=== PATIENT | male | born 1985 | race Caucasian/White ===

== ENCOUNTER 2018-08-05 21:07 | Observation (INO) ==
--- NOTE | 2018-08-05 21:15 | Emergency Department Note ---
Disposition Clinical Impression: Acute psychosis Disposition: Still a Patient General Adult HPI - General Stated complaint: AMS Time Seen by Provider: 08/05/18 21:09 - History of Present Illness HPI Narrative: ED ATTESTATION NOTE: I examined this patient and my medical decision-making was reviewed with the Resident Physician/CASE MONITOR/PA/Student. I have personally performed a face to face evaluation on this patient & I agree with the documented findings, disposition and treatment plan as described except to the extent set forth below. Patient was seen with emergency medicine resident Brandon Panchal please see copy of her note for details of this encounter Briefly: 33-year-old male brought in by) no family available patient lives in [place] but is here visiting. He has been off his "medications" for about 3 weeks. They are unsure what his actual mental health diagnosis is either bipolar disorder and/or schizophrenia. Patient is very agitated having active audio and visual hallucinations is able to be redirected with the with the verbal coaching. They said the patient is been getting violent at home punching holes in hilliard per the report. Patient is having pressured speech is hypervigilant. Patient will be getting 20 mg of Geodon. Patient physical examination is otherwise benign no signs of external trauma moist oral mucosa follows commands no skin rashes chest clear abdomen surgically benign patient is able to move all 4 kg 4 extremities. Patient will undergo medical clearance get 20 mg of Geodon patient is ready been pink slipped security is at bedside in the room. We will then have him evaluated by mental health services at [place]. Disposition pending. Course Vital Signs Temperature 98.0 F 08/05/18 21:12 Pulse Rate 126 08/05/18 21:12 Respiratory Rate 20 08/05/18 21:12 Blood Pressure 151/115 08/05/18 21:12 O2 Sat by Pulse Oximetry 99 08/05/18 21:12 Temperature 98.0 F 08/05/18 21:12 Pulse Rate 126 08/05/18 21:12 Respiratory Rate 20 08/05/18 21:12 Blood Pressure 151/115 08/05/18 21:12 O2 Sat by Pulse Oximetry 99 08/05/18 21:12 Oxygen Delivery Oxygen Delivery Room Air
[2018-08-05] MEDS ORDERED: Ziprasidone injection 20 MG/ML VIAL IM ONE ×2 (21:17→22:18)
[2018-08-05 21:30] LABS: Bilirubin,Urine Negative (Negative); Blood,Urine Negative (Negative); Clarity,Urine Clear (Clear); Color,Urine Yellow (Yellow); Glucose,Urine (UA) Normal (Normal); Ketones,Urine Trace mg/dL (Negative); Leukocyte Esterase,Urine Negative (Negative); Nitrite,Urine Negative (Negative); Protein,Urine Trace mg/dL (Neg-Trace); Specific Gravity,Urine 1.022 (1.010-1.025); Urobilinogen,Urine Normal (Normal)
[2018-08-05 21:32] LABS: Bacteria,Urine None Seen per hpf (None-Few); Hyaline Casts,Urine None Seen per lpf (None-Few); Squamous Epithelial Cell,Urine Moderate per lpf (None-Few); WBC,Urine 0-3 per hpf (0-3)
--- NOTE | 2018-08-05 21:50 | Emergency Department Note ---
Disposition Clinical Impression: Acute psychosis Disposition: Admitted As Inpatient Condition: Good Referrals: NONE,PCP [Primary Care Provider] - Forms: ED Satisfaction Letter Time of Disposition: 02:22 Psych HPI - General Chief Complaint: ED Psychiatric Symptoms Stated Complaint: 1A, AMS Time Seen by Provider: 08/05/18 21:09 Source: patient Mode of arrival: ambulatory Limitations: altered mental status Nursing Notes Reviewed: Yes Vital Signs Reviewed: Yes - History of Present Illness HPI Narrative: 33-year-old male presented to the emergency department for anxiety and psychiatric problems. Patient does have a psychiatric history but family and patient does not know a diagnosis they said possible bipolar or schizophrenia. He has not had any metastases of his medications recently. He is from [place] and visiting friends currently. They said that he has been talking to the hilliard and talking to people neck she saw him punching hilliard's or ST said there was something on there. Has not been violent anyone else has no homicidal or suicidal ideations. He does not have any pain anywhere. He does not have any short of breath. Patient otherwise has no complaints - Related Data Allergies Allergy/AdvReac Type Severity Reaction Status Date / Time Unable to Assess Allergy Unverified 08/05/18 21:23 All systems ED: reviewed and negative except as stated. Review of Systems: As Per HPI Constitutional: Denies: fever, chills, weakness, weight change Eyes: Denies: eye pain, eye discharge, vision change ENT ED: Denies: ear pain, throat pain, dental pain, hearing loss, epistaxis, congestion, dysphagia Cardiovascular: Denies: chest pain, palpitations, dyspnea on exertion, edema, syncope Respiratory: Denies: cough, dyspnea, wheezes, hemoptysis, stridor Gastrointestinal: Denies: abdominal pain, nausea, vomiting, diarrhea, constipation, hematemesis, melena, hematochezia Genitourinary: Denies: urgency, dysuria, frequency, hematuria Musculoskeletal: Denies: back pain, neck pain, arthralgia, myalgia Integumentary: Denies: rash, abrasion, lesions Neurological: Denies: headache, weakness, numbness, paresthesias, confusion, abnormal gait, vertigo Psychiatric: Reports: anxiety, auditory hallucinations, visual hallucinations. Denies: depression, suicidal thoughts, homicidal thoughts Endocrine: Denies: fatigue Hematological/Lymphatic: Denies: easy bleeding, easy bruising Allergic/Immunologic: Denies: facial swelling, urticaria Past Medical History - Past Medical History Attestation: Yes The following information was validated with the patient. Source: unable to obtain Medical history: Reports: other - Social History Smoking Status: Unknown if ever smoked Smokeless Tobacco Status: No Alcohol use: Reports: none Drug use: Reports: other Physical Exam - General Limitations: altered mental status General appearance: alert, in no apparent distress - Head Head exam: atraumatic, normocephalic, normal inspection - Eye Eye exam: Present: normal appearance, PERRL, EOMI - ENT ENT exam: normal exam, normal oropharynx, mucous membranes moist - Neck Neck exam: Present: normal inspection, full ROM, trachea midline - Chest Chest inspection: Present: normal inspection, symmetric chest wall rise - Respiratory Respiratory exam: Present: normal lung sounds bilaterally - Cardiovascular Cardiovascular exam: Present: regular rate, normal rhythm, normal heart sounds - Abdominal Exam Abdominal exam: Present: soft, Non-Tender, normal bowel sounds. Absent: tenderness, distention, guarding, rebound, rigidity - Extremities Exam Extremities exam: Present: normal inspection, full ROM. Absent: tenderness, pedal edema - Back Exam Back exam: Present: normal inspection, full ROM. Absent: tenderness - Neurological Exam Neurological exam: Present: alert, oriented X3 - Psychiatric Psychiatric exam: Present: anxious, manic. Absent: homicidal ideation, suicidal ideation - Skin Skin exam: Present: warm, dry, intact, normal color Course Course Narrative: We will do basic medical clearance including CBC, BMP, urinalysis, urine drug screen, salicylate, acetaminophen, chest x-ray. Once patient is medically cleared we will contact the psychiatric unit for further evaluation. Vital Signs Temperature 98.0 F 08/05/18 21:12 Pulse Rate 126 08/05/18 21:12 Respiratory Rate 20 08/05/18 21:12 Blood Pressure 151/115 08/05/18 21:12 O2 Sat by Pulse Oximetry 99 08/05/18 21:12 Temperature 98.0 F 08/05/18 21:12 Pulse Rate 90 08/05/18 23:17 Respiratory Rate 20 08/05/18 23:17 Blood Pressure 105/74 08/05/18 23:17 O2 Sat by Pulse Oximetry 99 08/05/18 21:12 Oxygen Delivery Oxygen Delivery Room Air Psych - MDM Narrative Medical decision making narrative: Patient's labs are all within normal limits. Patient did have a positive urine drug screen patient has no alcohol on board. We will contact the public health specialist for consultation and an evaluation. We will await their recommendations at this time. One a called back and they would like patient to be admitted for medical observation overnight as patient did get IM Geodon and was very sedated. One a we will reevaluate in the morning. I spoke with the hospitalist Dr. Bradley at 0222 and he agreed to set the patient to their service. Patient is admitted in stable condition - Lab Data Result diagrams: 08/05/18 21:10 08/05/18 21:10 Lab Results 08/05/18 08/05/18 08/05/18 Range/Units 21:10 21:10 21:19 WBC 9.6 (4.3-11.1) K/mcL RBC 5.52 H (4.19-5.50) M/mcL Hgb 17.2 H (12.9-16.9) g/dL Hct 47.2 (37.5-50.1) % MCV 85.5 (83.0-100.0) fL MCH 31.2 (28.0-33.3) pg MCHC 36.4 H (31.6-35.5) g/dL RDW 11.6 (11.5-14.5) % Plt Count 192 (140-400) K/mcL MPV 10.7 (9.4-12.4) fL Immature Gran % 0.3 (0-4) % Seg Neutrophils % 66.3 % Lymphocytes % 26.5 % Monocytes % 5.9 % Eosinophils % 0.4 % Basophils % 0.6 % Neutrophils # 6.3 (1.6-8.9) K/mcL Lymphocytes # 2.5 (0.6-4.6) K/mcL Monocytes # 0.6 (0.0-1.3) K/mcL Eosinophils # 0.0 (0.0-0.6) K/mcL Basophils # 0.1 (0.0-0.2) K/mcL Sodium 140 (136-145) mEq/L Potassium 3.6 (3.5-5.1) mEq/L Chloride 107 (98-107) mEq/L Carbon Dioxide 24 (23-29) mEq/L BUN 20 (6-20) mg/dL Creatinine 1.17 (0.70-1.30) mg/dL Est GFR ( Amer) > 60 (> 60) Est GFR (Non-Af Amer) > 60 (> 60) BUN/Creatinine Ratio 17 (6-26) Glucose 98 (70-105) mg/dL Calculated Osmolality 293 (280-300) Calcium 9.7 (8.6-10.3) mg/dL Urine Color Yellow (Yellow) Urine Clarity Clear (Clear) Urine pH 6.0 (5.0-8.0) pH Units Ur Specific [place] 1.022 (1.010-1.025) Urine Protein Trace (Neg-Trace) mg/dL Urine Glucose (UA) Normal (Normal) mg/dL Urine Ketones Trace H (Negative) mg/dL Urine Blood Negative (Negative) Urine Nitrite Negative (Negative) Urine Bilirubin Negative (Negative) Urine Urobilinogen Normal (Normal) mg/dL Ur Leukocyte Esterase Negative (Negative) Urine Microscopic RBC 5-15 H (0-3) per hpf Urine Microscopic WBC 0-3 (0-3) per hpf Ur Squamous Epith Cells Moderate H (None-Few) per lpf Urine Bacteria None Seen (None-Few) per hpf Hyaline Casts None Seen (None-Few) per lpf Salicylates < 2.5 L (15.0-30.0) mg/dL Urine Opiates Screen (Kwmqmg=133) ng/mL Acetaminophen < 10 L (10-20) mcg/mL Ur Barbiturates Screen (Czplob=392) ng/mL Ur Phencyclidine Scrn (Cutoff=25) ng/mL Ur Amphetamines Screen (Vgudjc=8628) ng/mL U Benzodiazepines Scrn (Tvbkjs=679) ng/mL Urine Cocaine Screen (Cutoff= 300) ng/mL U Marijuana (THC) Screen (Cutoff = 50) ng/mL Ur Drug Screen Interp Ethyl Alcohol < 10 (Less than 10) mg/dL 08/05/18 Range/Units 21:19 WBC (4.3-11.1) K/mcL RBC (4.19-5.50) M/mcL Hgb (12.9-16.9) g/dL Hct (37.5-50.1) % MCV (83.0-100.0) fL MCH (28.0-33.3) pg MCHC (31.6-35.5) g/dL RDW (11.5-14.5) % Plt Count (140-400) K/mcL MPV (9.4-12.4) fL Immature Gran % (0-4) % Seg Neutrophils % % Lymphocytes % % Monocytes % % Eosinophils % % Basophils % % Neutrophils # (1.6-8.9) K/mcL Lymphocytes # (0.6-4.6) K/mcL Monocytes # (0.0-1.3) K/mcL Eosinophils # (0.0-0.6) K/mcL Basophils # (0.0-0.2) K/mcL Sodium (136-145) mEq/L Potassium (3.5-5.1) mEq/L Chloride (98-107) mEq/L Carbon Dioxide (23-29) mEq/L BUN (6-20) mg/dL Creatinine (0.70-1.30) mg/dL Est GFR ( Amer) (> 60) Est GFR (Non-Af Amer) (> 60) BUN/Creatinine Ratio (6-26) Glucose (70-105) mg/dL Calculated Osmolality (280-300) Calcium (8.6-10.3) mg/dL Urine Color (Yellow) Urine Clarity (Clear) Urine pH (5.0-8.0) pH Units Ur Specific [place] (1.010-1.025) Urine Protein (Neg-Trace) mg/dL Urine Glucose (UA) (Normal) mg/dL Urine Ketones (Negative) mg/dL Urine Blood (Negative) Urine Nitrite (Negative) Urine Bilirubin (Negative) Urine Urobilinogen (Normal) mg/dL Ur Leukocyte Esterase (Negative) Urine Microscopic RBC (0-3) per hpf Urine Microscopic WBC (0-3) per hpf Ur Squamous Epith Cells (None-Few) per lpf Urine Bacteria (None-Few) per hpf Hyaline Casts (None-Few) per lpf Salicylates (15.0-30.0) mg/dL Urine Opiates Screen Negative (Wrvppp=201) ng/mL Acetaminophen (10-20) mcg/mL Ur Barbiturates Screen Negative (Spqvlh=879) ng/mL Ur Phencyclidine Scrn Negative (Cutoff=25) ng/mL Ur Amphetamines Screen Positive H (Vjcmje=6392) ng/mL U Benzodiazepines Scrn Negative (Bnebwq=748) ng/mL Urine Cocaine Screen Negative (Cutoff= 300) ng/mL U Marijuana (THC) Screen Positive H (Cutoff = 50) ng/mL Ur Drug Screen Interp See Below Ethyl Alcohol (Less than 10) mg/dL Psychiatric Medical Clearance - Medical Clearance Checklist Medical History: No Social History Section defined Current Vitals: Last Vital Signs Temp 98.0 F 08/05/18 21:12 Pulse 90 08/05/18 23:17 Resp 20 08/05/18 23:17 BP 105/74 08/05/18 23:17 Pulse Ox 99 08/05/18 21:12 Psychiatric Lab Panel: Drug Levels and Toxicity 08/05/18 08/05/18 21:10 21:19 Urine Opiates Screen Negative Acetaminophen < 10 L Ur Barbiturates Screen Negative Ur Phencyclidine Scrn Negative Ur Amphetamines Screen Positive H U Benzodiazepines Scrn Negative Urine Cocaine Screen Negative U Marijuana (THC) Screen Positive H Ethyl Alcohol < 10 Abnormal Labs: Abnormal lab results RBC 5.52 M/mcL (4.19-5.50) H 08/05/18 21:10 Hgb 17.2 g/dL (12.9-16.9) H 08/05/18 21:10 MCHC 36.4 g/dL (31.6-35.5) H 08/05/18 21:10 Urine Ketones Trace mg/dL (Negative) H 08/05/18 21:19 Urine Microscopic RBC 5-15 per hpf (0-3) H 08/05/18 21:19 Ur Squamous Epith Cells Moderate per lpf (None-Few) H 08/05/18 21:19 Salicylates < 2.5 mg/dL (15.0-30.0) L 08/05/18 21:10 Acetaminophen < 10 mcg/mL (10-20) L 08/05/18 21:10 Ur Amphetamines Screen Positive ng/mL (Jgwyoe=2057) H 08/05/18 21:19 U Marijuana (THC) Screen Positive ng/mL (Cutoff = 50) H 08/05/18 21:19 Statement of Medical Clearance: I have evaluated the patient, reviewed diagnostic information, and certify that the patient's medical condition is sufficiently stable that transfer to the psychiatric unit does not pose a significant risk of deterioration.
[2018-08-05 21:57] LABS: Amphetamine Screen,Urine Positive ng/mL (Cutoff=1000); Barbiturate Screen,Urine Negative ng/mL (Cutoff=200); Benzodiazepines Screen,Urine Negative ng/mL (Cutoff=200); Cannabinoid Screen,Urine Positive ng/mL (Cutoff = 50); Cocaine Screen,Urine Negative ng/mL (Cutoff= 300); Opiate Screen,Urine Negative ng/mL (Cutoff=300); Phencyclidine Screen,Urine Negative ng/mL (Cutoff=25)
[2018-08-05 22:11] LABS: Basophils # 0.1 K/mcL (0.0-0.2); Basophils % 0.6 %; Eosinophils % 0.4 %; Hematocrit 47.2 % (37.5-50.1); Hemoglobin 17.2 g/dL (12.9-16.9); Immature Granulocytes % 0.3 % (0-4); Lymphocytes # 2.5 K/mcL (0.6-4.6); Lymphocytes % 26.5 %; Mean Corpuscular HGB Conc 36.4 g/dL (31.6-35.5); Mean Corpuscular Hemoglobin 31.2 pg (28.0-33.3); Mean Corpuscular Volume 85.5 fL (83.0-100.0); Mean Platelet Volume 10.7 fL (9.4-12.4); Monocytes # 0.6 K/mcL (0.0-1.3); Monocytes % 5.9 %; Neutrophils # 6.3 K/mcL (1.6-8.9); Platelet Count 192 K/mcL (140-400); Red Blood Count 5.52 M/mcL (4.19-5.50); Red Cell Distribution Width 11.6 % (11.5-14.5); Segmented Neutrophils % 66.3 %
[2018-08-05 22:32] LABS: Acetaminophen < 10 mcg/mL (10-20); BUN/Creatinine Ratio 17 (6-26); Blood Urea Nitrogen 20 mg/dL (6-20); Calcium 9.7 mg/dL (8.6-10.3); Carbon Dioxide 24 mEq/L (23-29); Chloride 107 mEq/L (98-107); Ethanol < 10 mg/dL (Less than 10); Glucose 98 mg/dL (70-105); Osmolality,Calculated 293 (280-300); Potassium 3.6 mEq/L (3.5-5.1); Salicylate < 2.5 mg/dL (15.0-30.0); Sodium 140 mEq/L (136-145); eGFR For Non-African Americans > 60 (> 60)
[2018-08-05] MEDS: Ziprasidone 20 MG CAPSULE PO SCH (22:49)
[2018-08-06] MEDS ORDERED: Acetaminophen 325 MG TABLET PO PRN (07:33)
[2018-08-06] MEDS ORDERED: Naloxone 0.4 MG/ML INJ IVP PRN (07:33)
[2018-08-06] MEDS ORDERED: *HR* LORazepam 2 MG/ML VIAL IVP PRN (07:36)
[2018-08-06 08:20] VITALS: BP 144/87
--- NOTE | 2018-08-06 09:09 | Consult Note ---
Date of Encounter: 08/06/18 Time of Encounter: 09:06 Assessment & Recommendation (1) Acute psychosis Current visit: Yes Status: Acute Assessment & Recommendation: Suspect current presentation related to daily meth use but client unsafe to discharge in current state. Denies SI/HI but floridly psychotic. Recommend inpatient psych admission once medically clear. Can use Haldol prn for agitation until transferred. History of Present Illness Requesting Physician: Kostas Bradley MD Reason for consult: psychosis History of present illness: Mr. Gresham is a 33 year old male who was brought in by family for bizarre behaviors at home. No family at bedside but according to notes client was punching hilliard and talking to self. In ER he received prns and psych was unable to get a clear history from him due to sedation. On eval today he is floridly psychotic. Talking to multiple people who are not there. According to sitter he has been talking to himself and punching the air all morning. Unreliable historian but client did say he has a mental health history of "Bipolar, Schizophrenic." Not currently in treatment. Admits to using meth daily. Suspect current presentation is more related to substance abuse than a primary thought disorder. Client denies SI/HI but is unsafe to discharge given current presentation. CC: Kostas Bradley MD Past Med Surg Social Fam HX - Past Medical History Medical history: other - Past Psychiatric History Psychiatric history: Reports: bipolar, schizophrenia Family psychiatric history: Unknown Family History of Suicide: Unknown - Social History Smoking Status: Unknown if ever smoked Smokeless Tobacco Status: No Alcohol use: none Drug use: other Medications & Allergies 3 Allergy/AdvReac Type Severity Reaction Status Date / Time Unable to Assess Allergy Unverified 08/05/18 21:23 Review of Systems Constitutional: Denies: fever, chills, weakness, weight change Eyes: Denies: eye pain, vision change Ears, Nose, Throat: Denies: ear pain, throat pain, dental pain, hearing loss, congestion Cardiovascular: Denies: chest pain, palpitations, dyspnea on exertion Respiratory: Denies: cough, dyspnea, wheezes Gastrointestinal: Denies: abdominal pain, nausea, vomiting, diarrhea, constipation Genitourinary male: Denies: urgency, dysuria, frequency, genital lesions Musculoskeletal: Denies: joint swelling, joint pain Integumentary: Denies: rash, lesions, pruritus Neurological: Denies: headache, weakness, numbness, memory loss Endocrine: Denies: fatigue, heat or cold intolerance Hematologic/Lymphatic: Denies: easy bruising, lymphadenopathy Allergic/Immunologic: Denies: urticaria, itchy eyes Psychiatry Exam - Constitutional Vitals: Temp Pulse Resp BP Pulse Ox 97.8 F 76 16 144/87 98 08/06/18 08:19 08/06/18 08:19 08/06/18 08:19 08/06/18 08:19 08/06/18 08:19 General appearance: age & developmentally appropriate - Musculoskeletal Gait: other Station: bizarre mannerisms Strength & Tone: normal for patient - Psychiatric Patient Orientation: Yes Person, Yes Place Level of alertness: Alert Behavior: agitated Psychomotor activity: Increased Eye Contact: Maintains Eye Contact Mood Description: Irritable Affect description: congruent with mood Speech Volume: Normal Speech pattern: normal rate, normal rhythm, normal tone, fluent, spontaneous Language & Vocabulary: consistent with education Thought Process: Loose Associations Thought Content: No Suicidal ideation, No Homicidal ideation Perceptual Disturbances: Yes Reacting to internal stimuli, Yes Auditory hallucinations, Yes Visual hallucinations Attention Span Ability: Unable to Focus, Unable to Sustain Attention Memory Description: Immediate Intact, Recent Impaired, Remote Intact Patient Reliability: Not Reliable Historian Fund of knowledge: Yes abstraction ability, Yes aware of current events Intelligence Estimate: Average Judgment: Limited Insight: Minimal Results - Labs Labs: Laboratory Last Values WBC 9.6 K/mcL (4.3-11.1) 08/05/18 21:10 RBC 5.52 M/mcL (4.19-5.50) H 08/05/18 21:10 Hgb 17.2 g/dL (12.9-16.9) H 08/05/18 21:10 Hct 47.2 % (37.5-50.1) 08/05/18 21:10 MCV 85.5 fL (83.0-100.0) 08/05/18 21:10 MCH 31.2 pg (28.0-33.3) 08/05/18 21:10 MCHC 36.4 g/dL (31.6-35.5) H 08/05/18 21:10 RDW 11.6 % (11.5-14.5) 08/05/18 21:10 Plt Count 192 K/mcL (140-400) 08/05/18 21:10 MPV 10.7 fL (9.4-12.4) 08/05/18 21:10 Immature Gran % 0.3 % (0-4) 08/05/18 21:10 Seg Neutrophils % 66.3 % 08/05/18 21:10 Lymphocytes % 26.5 % 08/05/18 21:10 Monocytes % 5.9 % 08/05/18 21:10 Eosinophils % 0.4 % 08/05/18 21:10 Basophils % 0.6 % 08/05/18 21:10 Neutrophils # 6.3 K/mcL (1.6-8.9) 08/05/18 21:10 Lymphocytes # 2.5 K/mcL (0.6-4.6) 08/05/18 21:10 Monocytes # 0.6 K/mcL (0.0-1.3) 08/05/18 21:10 Eosinophils # 0.0 K/mcL (0.0-0.6) 08/05/18 21:10 Basophils # 0.1 K/mcL (0.0-0.2) 08/05/18 21:10 Sodium 140 mEq/L (136-145) 08/05/18 21:10 Potassium 3.6 mEq/L (3.5-5.1) 08/05/18 21:10 Chloride 107 mEq/L (98-107) 08/05/18 21:10 Carbon Dioxide 24 mEq/L (23-29) 08/05/18 21:10 BUN 20 mg/dL (6-20) 08/05/18 21:10 Creatinine 1.17 mg/dL (0.70-1.30) 08/05/18 21:10 Est GFR ( Amer) > 60 (> 60) 08/05/18 21:10 Est GFR (Non-Af Amer) > 60 (> 60) 08/05/18 21:10 BUN/Creatinine Ratio 17 (6-26) 08/05/18 21:10 Glucose 98 mg/dL (70-105) 08/05/18 21:10 Calculated Osmolality 293 (280-300) 08/05/18 21:10 Calcium 9.7 mg/dL (8.6-10.3) 08/05/18 21:10 Urine Color Yellow (Yellow) 08/05/18 21: Urine Clarity Clear (Clear) 08/05/18 21: Urine pH 6.0 pH Units (5.0-8.0) 08/05/18 21: Ur Specific [place] 1.022 (1.010-1.025) 08/05/18 21:19 Urine Protein Trace mg/dL (Neg-Trace) 08/05/18 21:19 Urine Glucose (UA) Normal mg/dL (Normal) 08/05/18 21: Urine Ketones Trace mg/dL (Negative) H 08/05/18 21:19 Urine Blood Negative (Negative) 08/05/18 21: Urine Nitrite Negative (Negative) 08/05/18: Urine Bilirubin Negative (Negative) 08/05/18: Urine Urobilinogen Normal mg/dL (Normal) 08/05/18 21: Ur Leukocyte Esterase Negative (Negative) 08/05/18 21: Urine Microscopic RBC 5-15 per hpf (0-3) H 08/05/18 21: Urine Microscopic WBC 0-3 per hpf (0-3) 08/05/18 21:19 Ur Squamous Epith Cells Moderate per lpf (None-Few) H 08/05/18 21:19 Urine Bacteria None Seen per hpf (None-Few) 08/05/18 21: Hyaline Casts None Seen per lpf (None-Few) 08/05/18 21:19 Salicylates < 2.5 mg/dL (15.0-30.0) L 08/05/18 21:10 Urine Opiates Screen Negative ng/mL (Myjnsi=681) 08/05/18 21: Acetaminophen < 10 mcg/mL (10-20) L 08/05/18 21:10 Ur Barbiturates Screen Negative ng/mL (Oelnfr=305) 08/05/18 21:19 Ur Phencyclidine Scrn Negative ng/mL (Cutoff=25) 08/05/18 21: Ur Amphetamines Screen Positive ng/mL (Uhxcao=7784) H 08/05/18 21: U Benzodiazepines Scrn Negative ng/mL (Xnobqv=842) 08/05/18 21:19 Urine Cocaine Screen Negative ng/mL (Cutoff= 300) 08/05/18 21: U Marijuana (THC) Screen Positive ng/mL (Cutoff = 50) H 08/05/18 21:19 Ur Drug Screen Interp See Below 08/05/18 21:19 Ethyl Alcohol < 10 mg/dL (Less than 10) 08/05/18 21:10 Consult Discharge Plan - Plan Referrals: NONE,PCP [Primary Care Provider] -
[2018-08-06] MEDS: *HR* Heparin 5,000 UNIT/ML VIAL SQ SCH ×2 (09:13→13:41)
[2018-08-06] MEDS: Ziprasidone 20 MG CAPSULE PO SCH (09:14)
--- NOTE | 2018-08-06 09:17 | Internal Med History&Physical ---
Date of Encounter: 08/06/18 Time of Encounter: 09:11 Internal Medicine - H&P: HPI Chief complaint: These are, erratic behavior at home. Admitted From: Home Plans for Post Hospital Care: Home History of present illness: Mr. Gresham is a 33 year old male as per ER note patient has a history of psychiatry condition, Patient did not give me much information during my evaluation. H&P taken from ER chart. Patient brought to the ED due to erratic behavior at home, as per chart patient was taking to the wall and having visual hallucinations. During my evaluation patient continues to have visual hallucination as he seems to be taking and arguing with someone. He denied homicidal or suicidal ideation. Past Med Surg Social Fam HX - Past Medical History Medical history: other - Social History Smoking Status: Unknown if ever smoked Smokeless Tobacco Status: No Alcohol use: none Drug use: other Internal Medicine - H&P: Meds 3 Allergy/AdvReac Type Severity Reaction Status Date / Time Unable to Assess Allergy Unverified 08/05/18 21:23 All Systems PM: A 10-system review of systems was performed and is negative for pertinent findings except as documented above in the HPI. - Constitutional Constitutional: no chills, no weakness - EENT Eyes: no blurry vision, no pain - Cardiovascular Cardiovascular ROS IM: no chest pain, no edema, no palpitations, no paroxysmal nocturnal dyspnea, no syncope - Respiratory Respiratory: no cough, no dyspnea, no wheezing, no snoring - Gastrointestinal Gastrointestinal: no abdominal pain, no change in bowel habits, no nausea, no vomiting - Genitourinary Genitourinary ROS male: no hematuria - Musculoskeletal Musculoskeletal ROS IM: no limited range of motion, no neck pain - Integumentary Integumentary IM: no rash - Neurological Neurological ROS: other visual disturbances, no abnormal speech, no lack of coordination, no restless legs - Psychiatric Psychiatric: anxiety, auditory hallucinations, visual hallucinations, no homicidal ideation, no suicidal ideation - Endocrine Endocrine IM: no cold intolerance, no fatigue - Constitutional Vitals: Temp Pulse Resp BP Pulse Ox 97.8 F 76 16 144/87 98 08/06/18 08:19 08/06/18 08:19 08/06/18 08:19 08/06/18 08:19 08/06/18 08:19 Exam: General: Alert and oriented 3. In no acute distress. Skin:Normal color, no rash, no lesions. Cardiovascular: RRR, Normal S1 & S2, no rubs, murmurs or gallops. Jvd about 5cm. Lungs: Clear breath sounds to auscultation bilaterally, no wheezes or crackles. Abdomen: Soft, non-tender, no rigidity. Extremities: No deformity, no edema or tenderness, no joint swelling or clubbing. Neurological: Erratic behavior, having visual hallucinations. Normal motor skills. Rest of the physical exam is non contributory Internal Med - H&P Results - Labs CBC & Chem 7: 08/05/18 21:10 08/05/18 21:10 - Assessment and plan (1) Acute psychosis Current Visit: Yes Status: Acute Assessment and plan: Patient having visual and auditory hallucinations Plan Psychiatry has been consulted will follow recommendations lorazepam 1mg/IV Q4HR PRN for agitation started on his home medication Ziprasidene 20mg PO BID. - Time Spent With Patient Total time spent is greater than 50% in coordination of care (as documented) at patient's floor/unit and/or counseling patient: 25 - 35 minutes
--- NOTE | 2018-08-06 09:26 | Discharge Summary ---
Date of Encounter: 08/06/18 Time of Encounter: 09:24 - Discharge Diagnosis (1) Acute psychosis Priority: Primary Status: Acute Hospital course: Mr. Gresham is a 33 year old male patient brought to the hospital from home due to erratic behavior, visual or auditory hallucination. Evaluated by psych and recommended inpatient psych admission. Patient is medically cleared to be transferred. - Time Spent with Patient Total time spent providing and/or coordinating discharge services: Less than 30 minutes - Discharge Medications Allergies/Adverse Reactions: 3 Allergy/AdvReac Type Severity Reaction Status Date / Time Unable to Assess Allergy Unverified 08/05/18 21:23 Date of admission: 08/06/18 02:33 Primary care physician: PCP NONE Consults: 08/06/18 07:39 Consult to Psychiatry [CONS] Routine Consulting Provider: Psychiatry Diana Reason consult: Psychosis Call Completed: No - Constitutional Vitals: Temp Pulse Resp BP Pulse Ox 97.8 F 76 16 144/87 98 08/06/18 08:19 08/06/18 08:19 08/06/18 08:19 08/06/18 08:19 08/06/18 08:19 Exam: General: Alert and oriented 3. In no acute distress. Skin:Normal color, no rash, no lesions. Cardiovascular: RRR, Normal S1 & S2, no rubs, murmurs or gallops. Jvd about 5cm. Lungs: Clear breath sounds to auscultation bilaterally, no wheezes or crackles. Abdomen: Soft, non-tender, no rigidity. Extremities: No deformity, no edema or tenderness, no joint swelling or clubbing. Neurological: Erratic behavior, having visual hallucinations. Normal motor skills. Rest of the physical exam is non contributory - Patient Status Disposition: Transfer Psychiatric Hosp Condition: Good Functional capacity at discharge: independent ambulation Overall status at discharge: patient is not back to baseline - Discharge Instructions Follow Up With: NONE,PCP [Primary Care Provider] - - Diet and Activity Activity: resume usual activities as tolerated Diet: advance to your usual diet
== END 2018-08-06 19:40 ==
LOC: EMEROOARM 21:07 → 3BNU 21:07
PROVIDERS: ADMIT Internal Medicine; ATTEND Pediatrics

== ENCOUNTER 2018-08-06 12:04 | Inpatient (IN) ==
[2018-08-06] MEDS ORDERED: *HR* LORazepam 2 MG/ML VIAL IM PRN (19:24)
[2018-08-06] MEDS ORDERED: MOM Conc 10 ML UD.LIQ PO PRN (19:24)
[2018-08-06] MEDS ORDERED: Haloperidol Lactate 5 MG/ML VIAL IM PRN (19:24)
[2018-08-06] MEDS ORDERED: Mag Hydrox/Al Hydrox/Simeth 30 ML UDC PO PRN (19:24)
[2018-08-06] MEDS: *HR* LORazepam 1 MG TABLET PO PRN (21:08)
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
[2018-08-07] MEDS ORDERED: *HR* LORazepam 1 MG TABLET PO ONE (12:42)
[2018-08-07] MEDS: *HR* LORazepam 1 MG TABLET PO SCH ×2 (19:23→20:42)
[2018-08-07] MEDS: risperiDONE 1 MG TABLET PO SCH (20:42)
[2018-08-07] MEDS: OXcarbazepine 150 MG TABLET PO SCH (20:42)
[2018-08-08] MEDS: Acetaminophen 325 MG TABLET PO PRN ×2 (09:30→20:38)
[2018-08-08] MEDS: OXcarbazepine 150 MG TABLET PO SCH ×2 (09:30→20:38)
[2018-08-08] MEDS: *HR* LORazepam 1 MG TABLET PO SCH ×3 (09:30→20:37)
[2018-08-08] MEDS: risperiDONE 1 MG TABLET PO SCH ×2 (09:30→20:39)
--- NOTE | 2018-08-08 12:51 | Psychiatry Progress Note ---
Date of Encounter: 08/08/18 Time of Encounter: 12:08 Subjective Interval history: pATIENT SEEN TODAY , CASE D/W TREATMENT TEAM , REMAINS DELUSIONAL and disruptive at time. states i am angry and upset about the situation here. i felt like other juanpablo is going to kill me, i have 3 faces , he thinks i am pervert. admits to a/v hallucinations and is paranoid and anxious. i stumped on my foot , foot examined , no swelling and no tenderness. i want to wait for [employer] [facility] to give me a car , i know i deserve it , i want to go shopping ang get stuff for my family. i want to go to in [place] to give me whatever drugs i want. denies side effects. Review of Systems Psychiatric: Reports: depression, anxiety, auditory hallucinations, visual hallucinations, difficulty concentrating, irritability, mood swings Results - Vital Signs Vital Signs: Temp Pulse Resp BP 98.5 F 64 16 140/97 08/08/18 09:00 08/08/18 09:00 08/08/18 09:00 08/08/18 09:00 Assessment and Plan (1) Acute psychosis Current visit: No Status: Acute Risks, benefits, side effects, alternatives discussed w/pt: Yes Patient agreeable to treatment: Yes (2) Methamphetamine-induced psychotic disorder Current visit: Yes Status: Acute Risks, benefits, side effects, alternatives discussed w/pt: Yes Patient agreeable to treatment: Yes (3) Schizophrenia Current visit: Yes Status: Acute Risks, benefits, side effects, alternatives discussed w/pt: Yes Patient agreeable to treatment: Yes Qualifiers: Schizophrenia type: paranoid schizophrenia Qualified Code(s): F20.0 - Paranoid schizophrenia Psychiatry Exam - Constitutional Vitals: Temp Pulse Resp BP 98.5 F 64 16 140/97 08/08/18 09:00 08/08/18 09:00 08/08/18 09:00 08/08/18 09:00 General appearance: average, thin - Musculoskeletal Gait: normal Station: other Strength & Tone: normal for patient - Psychiatric Patient Orientation: Yes Person, Yes Time, Yes Place Level of alertness: Alert Behavior: nervous, anxious, distractible Psychomotor activity: Increased Eye Contact: Minimal Contact Mood Description: Anxious, Irritable Affect description: constricted Speech Volume: Normal Speech pattern: disorganized Language & Vocabulary: consistent with education Thought Process: Tangential, Disorganized, Racing Thought Content: Yes Preoccupation, Yes Paranoid delusion Perceptual Disturbances: Yes Auditory hallucinations, Yes Visual hallucinations Attention Span Ability: Unable to Sustain Attention Memory Description: Grossly Intact Patient Reliability: Questionable Historian Fund of knowledge: Yes average Intelligence Estimate: Average Judgment: Poor Insight: Minimal
[2018-08-08] MEDS: hydrOXYzine pamoate 25 MG CAPSULE PO PRN (20:38)
[2018-08-08] MEDS: Nicotine 2 MG GUM BC PRN (21:11)
[2018-08-09] MEDS: OXcarbazepine 150 MG TABLET PO SCH ×2 (08:37→20:32)
[2018-08-09] MEDS: risperiDONE 1 MG TABLET PO SCH (08:38)
[2018-08-09] MEDS: *HR* LORazepam 1 MG TABLET PO SCH ×2 (08:38→20:32)
[2018-08-09] MEDS: Acetaminophen 325 MG TABLET PO PRN (10:25)
--- NOTE | 2018-08-09 13:20 | Psychiatry Progress Note ---
Date of Encounter: 08/09/18 Time of Encounter: 12:45 Subjective Interval history: Patient seen today , case d/w treatment team , he remains delusional but has periods of clear thoughts. today stating will go agter eliu[place] and do something , when i asked are you going to hurt someone , he said look at me , i do not want the law. he is stating pain in foot is good, he was c/o more this morning and not putting his foot right one completely on floor, therefore xray has been requested. At present continue monitoring as remains delusional and psychotic and has been threathening to hurt te desi shine is outside. Review of Systems Psychiatric: Reports: depression, anxiety, auditory hallucinations, visual hallucinations, difficulty concentrating, irritability, mood swings Results - Vital Signs Vital Signs: Temp Pulse Resp BP 98.3 F 80 16 137/95 08/09/18 09:00 08/09/18 09:00 08/09/18 09:00 08/09/18 09:00 - Impressions ITS Impressions Ankle X-Ray 08/09/18 11:45 IMPRESSION: No acute abnormalities. D/ / Jose M Madrigal MD / Jose M Madrigal MD Interpreting Provider: Jose M Madrigal MD Assessment and Plan (1) Acute psychosis Current visit: No Status: Acute Risks, benefits, side effects, alternatives discussed w/pt: Yes Patient agreeable to treatment: Yes (2) Methamphetamine-induced psychotic disorder Current visit: Yes Status: Acute Risks, benefits, side effects, alternatives discussed w/pt: Yes Patient agreeable to treatment: Yes (3) Schizophrenia Current visit: Yes Status: Acute Risks, benefits, side effects, alternatives discussed w/pt: Yes Patient agreeable to treatment: Yes Qualifiers: Schizophrenia type: paranoid schizophrenia Qualified Code(s): F20.0 - Paranoid schizophrenia Consult Discharge Plan - Plan Referrals: NONE,PCP [Primary Care Provider] - Psychiatry Exam - Constitutional Vitals: Temp Pulse Resp BP 98.3 F 80 16 137/95 08/09/18 09:00 08/09/18 09:00 08/09/18 09:00 08/09/18 09:00 General appearance: average - Musculoskeletal Gait: other Station: other Strength & Tone: normal for patient - Psychiatric Patient Orientation: Yes Person, Yes Time, Yes Place Level of alertness: Alert Behavior: anxious, distractible Psychomotor activity: Increased Eye Contact: Maintains Eye Contact Mood Description: Anxious Affect description: constricted Speech Volume: Normal Speech pattern: excessive Language & Vocabulary: consistent with education Thought Process: Circumstantial, Tangential Thought Content: Yes Paranoid delusion Attention Span Ability: Unable to Sustain Attention Memory Description: Grossly Intact Patient Reliability: Reliable Historian Fund of knowledge: Yes average Intelligence Estimate: Average Judgment: Limited Insight: Minimal
[2018-08-10] MEDS: *HR* LORazepam 1 MG TABLET PO SCH ×2 (08:16→20:56)
[2018-08-10] MEDS: OXcarbazepine 150 MG TABLET PO SCH ×2 (08:17→20:56)
[2018-08-10] MEDS ORDERED: RisperiDAL 3 MG TABLET PO SCH (09:00)
--- NOTE | 2018-08-10 11:28 | Psychiatry Progress Note ---
Date of Encounter: 08/10/18 Time of Encounter: 11:02 Subjective Interval history: Patient seen today , case d/w staff. he remains agitated , loud at times and threathening. he stated you guys are trying to kill me, i need to go out today. he has poor insight and judgement. states risperdal sometimes it gives me lock jaw and has refused taking it. will dc and start olanzapine , bc h/o hepatitis as per him will start gabapentin , he agreed to the plan. slept better last night , he is angry , upset and c/o pain in his heel. xray is fine. he started crying in session states i want to leave, i am not perfect , my anger protects me. remains psychotic and delusional and having visual hallucination. will start olanzapine and gabapentin. Review of Systems Psychiatric: Reports: depression, anxiety, auditory hallucinations, visual hallucinations, difficulty concentrating, irritability, mood swings Results - Vital Signs Vital Signs: Temp Pulse Resp BP 98.0 F 77 18 164/107 08/10/18 08:50 08/10/18 08:50 08/10/18 08:50 08/10/18 08:50 - Impressions ITS Impressions Ankle X-Ray 08/09/18 11:45 IMPRESSION: No acute abnormalities. D/ / Jose M Madrigal MD / Jose M Madrigal MD Interpreting Provider: Jose M Madrigal MD Assessment and Plan (1) Schizophrenia Current visit: Yes Status: Acute Risks, benefits, side effects, alternatives discussed w/pt: Yes Patient agreeable to treatment: Yes Qualifiers: Schizophrenia type: paranoid schizophrenia Qualified Code(s): F20.0 - Paranoid schizophrenia (2) Acute psychosis Current visit: No Status: Acute Risks, benefits, side effects, alternatives discussed w/pt: Yes Patient agreeable to treatment: Yes (3) Methamphetamine-induced psychotic disorder Current visit: Yes Status: Acute Risks, benefits, side effects, alternatives discussed w/pt: Yes Patient agreeable to treatment: Yes Consult Discharge Plan - Plan Referrals: NONE,PCP [Primary Care Provider] - Psychiatry Exam - Constitutional Vitals: Temp Pulse Resp BP 98.0 F 77 18 164/107 08/10/18 08:50 08/10/18 08:50 08/10/18 08:50 08/10/18 08:50 General appearance: average - Musculoskeletal Gait: slow Station: other Strength & Tone: normal for patient - Psychiatric Patient Orientation: Yes Person, Yes Time, Yes Place Level of alertness: Alert Behavior: cooperative, tearful, distractible Psychomotor activity: Slowed Eye Contact: Maintains Eye Contact Mood Description: Depressed, Anxious Affect description: congruent with mood Speech Volume: Soft/Quiet Speech pattern: slowed Language & Vocabulary: consistent with education Thought Content: Yes Preoccupation, Yes Paranoid delusion, Yes Grandiose delusion Perceptual Disturbances: Yes Visual hallucinations Attention Span Ability: Unable to Sustain Attention Memory Description: Grossly Intact Patient Reliability: Reliable Historian Fund of knowledge: Yes average Intelligence Estimate: Average Judgment: Limited Insight: Minimal
[2018-08-10] MEDS: Gabapentin 100 MG CAPSULE PO SCH ×2 (14:29→20:56)
[2018-08-10] MEDS: Acetaminophen 325 MG TABLET PO PRN (17:01)
[2018-08-10] MEDS: OLANZapine 10 MG TAB.RAPDIS PO SCH (20:56)
[2018-08-11] MEDS: Acetaminophen 325 MG TABLET PO PRN (07:35)
[2018-08-11] MEDS: Gabapentin 100 MG CAPSULE PO SCH (08:24)
[2018-08-11] MEDS: *HR* LORazepam 1 MG TABLET PO SCH ×2 (08:24→20:22)
[2018-08-11] MEDS: OXcarbazepine 150 MG TABLET PO SCH (08:24)
--- NOTE | 2018-08-11 11:15 | Psychiatry Progress Note ---
Date of Encounter: 08/11/18 Time of Encounter: 10:50 Subjective Interval history: Patient seen today , case d/w treatment team. remains agitated but is verbally directed mostly remains paranoid and focused on discharge, wants to leave but has no plans. his foot is better and preoccupied with pervert and hurting him, does not know who and where. he is stating you want to see my worse , i can be if you will not discharge. states how about if i do not take medication for ever , he has no insight. wants his Rolladnax bar. he is loud in session at times and is agitated. i am done playing this game , i want out with no medication.there is no more one more day for me, i am in control of my body I F control my body i am bipolar schizophrenia , i do not need any medication. i can not have hot girls because you all think i am evil , remains agitated , paranoia , and having auditory hallucination ,labile loud, then crying and slow. Review of Systems Psychiatric: Reports: depression, anxiety, auditory hallucinations, difficulty concentrating, irritability, mood swings Results - Vital Signs Vital Signs: Temp Pulse Resp BP 98.1 F 84 18 159/104 08/11/18 09:00 08/11/18 09:00 08/11/18 09:00 08/11/18 09:00 - Impressions ITS Impressions Ankle X-Ray 08/09/18 11:45 IMPRESSION: No acute abnormalities. D/ / Jose M Madrigal MD / Jose M Madrigal MD Interpreting Provider: Jose M Madrigal MD Assessment and Plan (1) Schizophrenia Current visit: Yes Status: Acute Risks, benefits, side effects, alternatives discussed w/pt: Yes Patient agreeable to treatment: Yes Qualifiers: Schizophrenia type: paranoid schizophrenia Qualified Code(s): F20.0 - Paranoid schizophrenia (2) Acute psychosis Current visit: No Status: Acute Risks, benefits, side effects, alternatives discussed w/pt: Yes Patient agreeable to treatment: Yes (3) Methamphetamine-induced psychotic disorder Current visit: Yes Status: Acute Risks, benefits, side effects, alternatives discussed w/pt: Yes Patient agreeable to treatment: Yes Consult Discharge Plan - Plan Referrals: [facility] [Outside] - 08/24/18 10:00 am (The above appointment is with Rebecca Roberto for outpatient psychiatric assessment and medication management services. Please arrive 15 minutes early to complete paperwork. Please bring your insurance card, photo ID and medications in their original bottles. If you do not have insurance, bring proof of income to apply for the sliding fee scale. If you are unable to keep this appointment, 24 hour business notice of cancellation is expected. The above appointment(s) reflects first availability. You may contact the office regularly to check for cancellations that may allow you to be seen sooner.) [facility] [Outside] (The above appointment is with . Please complete and bring the [facility] intake packet you were provided at the hospital to this appointment. When you come to your first appointment, you will be meeting with business office staff, meeting with a counselor, and developing a treatment plan. You will receive follow- up appointments for on-going services , which could include community support, mental health and substance abuse counseling, groups/partial hospitalization programming and medication assisted treatment. You will also need to bring the following to your first appointment as well: 1) proof of household income (two consecutive pay stubs, social security award letter, bank statement, statement letter from [facility], child support statement, IRS 1040 or W2 form, or a statement from the person who financially supports you stating they help provide for your basic needs), 2) proof of residency (drivers license, a piece of mail showing your address, a statement from person you live with verifying you live at their address), 3) photo ID, 4) your insurance card (if you have commercial insurance you must call to obtain a prior authorization number before you arrive to your first appointment) and 5) if you do not have insurance but have applied for Medicaid, please bring verification you have applied. The above appointment(s) reflects first availability. You may contact the office regularly to check for cancellations that may allow you to be seen sooner.) Psychiatry Exam - Constitutional Vitals: Temp Pulse Resp BP 98.1 F 84 18 159/104 08/11/18 09:00 08/11/18 09:00 08/11/18 09:08/11/18 09:00 General appearance: average - Musculoskeletal Gait: normal Strength & Tone: normal for patient - Psychiatric Patient Orientation: Yes Person, Yes Time, Yes Place Level of alertness: Alert Behavior: agitated, impulsive Psychomotor activity: Agitated Eye Contact: Maintains Eye Contact Mood Description: Labile Affect description: labile Speech Volume: Excessive Variation Speech pattern: rambling, excessive Language & Vocabulary: consistent with education Thought Process: Circumstantial, Racing Thought Content: Yes Preoccupation, Yes Paranoid delusion Perceptual Disturbances: Yes Auditory hallucinations Attention Span Ability: Unable to Sustain Attention Memory Description: Grossly Intact Patient Reliability: Reliable Historian Fund of knowledge: Yes average Intelligence Estimate: Average Judgment: Limited Insight: Minimal
[2018-08-11] MEDS: Gabapentin 300 MG CAPSULE PO SCH ×2 (14:19→20:22)
[2018-08-11] MEDS: hydrOXYzine pamoate 25 MG CAPSULE PO PRN (14:52)
[2018-08-11] MEDS: *HR* LORazepam 1 MG TABLET PO PRN (18:10)
[2018-08-11] MEDS: Nicotine 2 MG GUM BC PRN (18:34)
[2018-08-11] MEDS: OLANZapine 10 MG TAB.RAPDIS PO SCH (20:22)
[2018-08-12] MEDS: Acetaminophen 325 MG TABLET PO PRN (07:30)
[2018-08-12] MEDS: Gabapentin 300 MG CAPSULE PO SCH ×3 (08:55→21:01)
--- NOTE | 2018-08-12 11:30 | Psychiatry Progress Note ---
Date of Encounter: 08/12/18 Time of Encounter: 11:05 Subjective Interval history: Patient seen today ,case d/w staff, he has not been agitated since last night , compliant with medication and denies side effects just tired. he has been participating in his treatment and unit milieu. psychosis is still there but improving,will monitor his psychosis. he denies suicidal/homicidal ideation. continue same rx plan. Review of Systems Psychiatric: Reports: depression, anxiety, auditory hallucinations, difficulty concentrating, irritability, mood swings Results - Vital Signs Vital Signs: Temp Pulse Resp BP 97.4 F L 110 20 140/98 08/12/18 09:00 08/12/18 09:00 08/12/18 09:00 08/12/18 09:00 - Impressions ITS Impressions Ankle X-Ray 08/09/18 11:45 IMPRESSION: No acute abnormalities. D/ / Jose M Madrigal MD / Jose M Madrigal MD Interpreting Provider: Jose M Madrigal MD Assessment and Plan (1) Schizophrenia Current visit: Yes Status: Acute Risks, benefits, side effects, alternatives discussed w/pt: Yes Patient agreeable to treatment: Yes Qualifiers: Schizophrenia type: paranoid schizophrenia Qualified Code(s): F20.0 - Paranoid schizophrenia (2) Acute psychosis Current visit: No Status: Acute Risks, benefits, side effects, alternatives discussed w/pt: Yes Patient agreeable to treatment: Yes (3) Methamphetamine-induced psychotic disorder Current visit: Yes Status: Acute Risks, benefits, side effects, alternatives discussed w/pt: Yes Patient agreeable to treatment: Yes Consult Discharge Plan - Plan Referrals: [facility] [Outside] - 08/24/18 10:00 am (The above appointment is with Rebecca Roberto for outpatient psychiatric assessment and medication management services. Please arrive 15 minutes early to complete paperwork. Please bring your insurance card, photo ID and medications in their original bottles. If you do not have insurance, bring proof of income to apply for the sliding fee scale. If you are unable to keep this appointment, 24 hour business notice of cancellation is expected. The above appointment(s) reflects first availability. You may contact the office regularly to check for cancellations that may allow you to be seen sooner.) [facility] 9:30 am (The above appointment is with Yris. Please complete and bring the [facility] intake packet you were provided at the hospital to this appointment. When you come to your first appointment, you will be meeting with business office staff, meeting with a counselor, and developing a treatment plan. You will receive follow- up appointments for on-going services, which could include community support, mental health and substance abuse counseling, groups/partial hospitalization programming and medication assisted treatment. You will also need to bring the following to your first appointment as well: 1) proof of household income (two consecutive pay stubs, social security award letter, bank statement, statement letter from [facility], child support statement, IRS 1040 or W2 form, or a statement from the person who financially supports you stating they help provide for your basic needs), 2) proof of residency (drivers license, a piece of mail showing your address, a statement from person you live with verifying you live at their address), 3) photo ID, 4) your insurance card (if you have commercial insurance you must call to obtain a prior authorization number before you arrive to your first appointment) and 5) if you do not have insurance but have applied for Medicaid, please bring verification you have applied. The above appointment(s) reflects first availability. You may contact the office regularly to check for cancellations that may allow you to be seen sooner.) Psychiatry Exam - Constitutional Vitals: Temp Pulse Resp BP 97.4 F L 110 20 140/98 08/12/18 09:00 08/12/18 09:00 08/12/18 09:00 08/12/18 09:00 General appearance: age & developmentally appropriate - Musculoskeletal Gait: normal Station: other Strength & Tone: normal for patient - Psychiatric Patient Orientation: Yes Person, Yes Time, Yes Place Level of alertness: Alert Behavior: distractible, talkative Psychomotor activity: Normal Eye Contact: Maintains Eye Contact Mood Description: Irritable Affect description: congruent with mood Speech Volume: Normal Speech pattern: excessive Language & Vocabulary: consistent with education Thought Process: Circumstantial Thought Content: Yes Preoccupation, Yes Paranoid delusion Perceptual Disturbances: Yes Reacting to internal stimuli Attention Span Ability: Capable of Focused Attention Memory Description: Grossly Intact Patient Reliability: Reliable Historian Fund of knowledge: Yes average Intelligence Estimate: Average Judgment: Limited Insight: Minimal
[2018-08-12] MEDS: *HR* LORazepam 1 MG TABLET PO PRN (14:23)
[2018-08-12] MEDS: OLANZapine 10 MG TAB.RAPDIS PO SCH (20:58)
[2018-08-12] MEDS: *HR* LORazepam 1 MG TABLET PO SCH (20:59)
[2018-08-12] MEDS: Ibuprofen 400 MG TABLET PO PRN (21:00)
[2018-08-13] MEDS: Gabapentin 300 MG CAPSULE PO SCH ×3 (09:42→20:33)
[2018-08-13] MEDS: Ibuprofen 400 MG TABLET PO PRN (09:43)
[2018-08-13] MEDS: Acetaminophen 325 MG TABLET PO PRN ×2 (10:36→17:24)
[2018-08-13] MEDS: Nicotine 2 MG GUM BC PRN (10:48)
--- NOTE | 2018-08-13 12:40 | Psychiatry Progress Note ---
Date of Encounter: 08/13/18 Time of Encounter: 12:00 Subjective Interval history: Patient seen today , case d/w staff patient has been showing improvement, denies suicidal/homicidal ideation , had been verbally redirected , he is walking fine at times he will drag his feet. he is not c/o ankle pain at present. patient states slept good but had some hot sweats. he is not suicidal/homicidal, denies paranoia today states i feel normal , the way i am. at baseline. denies side effects. Review of Systems Psychiatric: Reports: depression, anxiety, mood swings Results - Vital Signs Vital Signs: Temp Pulse Resp BP Pulse Ox 97.8 F 82 20 162/92 98 08/13/18 08:27 08/13/18 08:27 08/13/18 08:27 08/13/18 08:27 08/13/18 08:27 - Impressions ITS Impressions Ankle X-Ray 08/09/18 11:45 IMPRESSION: No acute abnormalities. D/ / Jose M Madrigal MD / Jose M Madrigal MD Interpreting Provider: Jose M Madrigal MD Assessment and Plan (1) Schizophrenia Current visit: Yes Status: Acute Risks, benefits, side effects, alternatives discussed w/pt: Yes Patient agreeable to treatment: Yes Qualifiers: Schizophrenia type: paranoid schizophrenia Qualified Code(s): F20.0 - Paranoid schizophrenia (2) Acute psychosis Current visit: No Status: Acute Risks, benefits, side effects, alternatives discussed w/pt: Yes Patient agreeable to treatment: Yes (3) Methamphetamine-induced psychotic disorder Current visit: Yes Status: Acute Risks, benefits, side effects, alternatives discussed w/pt: Yes Patient agreeable to treatment: Yes Consult Discharge Plan - Plan Referrals: [facility] [Outside] - 08/24/18 10:00 am (The above appointment is with Rebecca Roberto for outpatient psychiatric assessment and medication management services. Please arrive 15 minutes early to complete paperwork. Please bring your insurance card, photo ID and medications in their original bottles. If you do not have insurance, bring proof of income to apply for the sliding fee scale. If you are unable to keep this appointment, 24 hour business notice of cancellation is expected. The above appointment(s) reflects first availability. You may contact the office regularly to check for cancellations that may allow you to be seen sooner.) [facility] - 08/25/18 9:30 am (The above appointment is with Yris. Please complete and bring the [facility] intake packet you were provided at the hospital to this appointment. When you come to your first appointment, you will be meeting with business office staff, meeting with a counselor, and developing a treatment plan. You will receive follow- up appointments for on-going services, which could include community support, mental health and substance abuse counseling, groups/partial hospitalization programming and medication assisted treatment. You will also need to bring the following to your first appointment as well: 1) proof of household income (two consecutive pay stubs, social security award letter, bank statement, statement letter from [facility], child support statement, IRS 1040 or W2 form, or a statement from the person who financially supports you stating they help provide for your basic needs), 2) proof of residency (drivers license, a piece of mail showing your address, a statement from person you live with verifying you live at their address), 3) photo ID, 4) your insurance card (if you have commercial insurance you must call to obtain a prior authorization number before you arrive to your first appointment) and 5) if you do not have insurance but have applied for Medicaid, please bring verification you have applied. The above appointment(s) reflects first availability. You may contact the office regularly to check for cancellations that may allow you to be seen sooner.) Psychiatry Exam - Constitutional Vitals: Temp Pulse Resp BP Pulse Ox 97.8 F 82 20 162/92 98 08/13/18 08:27 08/13/18 08:27 08/13/18 08:27 08/13/18 08:27 08/13/18 08:27 General appearance: age & developmentally appropriate - Musculoskeletal Gait: normal Station: other Strength & Tone: normal for patient - Psychiatric Patient Orientation: Yes Person, Yes Time, Yes Place Level of alertness: Alert Behavior: calm, cooperative Psychomotor activity: Normal Eye Contact: Maintains Eye Contact Mood Description: Euthymic/stable Affect description: congruent with mood Speech Volume: Normal Speech pattern: coherent Language & Vocabulary: consistent with education Thought Process: Intact Thought Content: Yes Paranoid delusion Perceptual Disturbances: No Auditory hallucinations, No Visual hallucinations Attention Span Ability: Capable of Focused Attention Memory Description: Grossly Intact Patient Reliability: Reliable Historian Fund of knowledge: Yes average Intelligence Estimate: Average Judgment: Fair Insight: Minimal
[2018-08-13] MEDS: hydrOXYzine pamoate 25 MG CAPSULE PO PRN (17:24)
[2018-08-13] MEDS: *HR* LORazepam 1 MG TABLET PO SCH (20:34)
[2018-08-13] MEDS: OLANZapine 10 MG TAB.RAPDIS PO SCH (20:34)
[2018-08-14] MEDS: Acetaminophen 325 MG TABLET PO PRN (07:24)
[2018-08-14] MEDS: Gabapentin 300 MG CAPSULE PO SCH ×2 (08:20→14:47)
--- NOTE | 2018-08-14 09:44 | Discharge Summary ---
Date of Encounter: 08/14/18 Time of Encounter: 09:30 Diagnosis - Discharge Diagnosis (1) Schizophrenia Status: Chronic Comments: Patient showed improvement with structure enviorment and medication , baseline at present. Qualifiers: Schizophrenia type: paranoid schizophrenia Qualified Code(s): F20.0 - Paranoid schizophrenia (2) Acute psychosis Status: Resolved (3) Methamphetamine-induced psychotic disorder Status: Acute Comments: patient declined inpatient rehab , outpatient referal given. Medications - Discharge Medications Prescriptions: Gabapentin [Neurontin] 300 mg PO TID #30 capsule OLANZapine [Zyprexa Zydis] 15 mg PO HS #30 tab.rapdis Gabapentin [Neurontin] 300 mg PO TID #30 capsule 08/14/18 [Rx] OLANZapine [Zyprexa Zydis] 15 mg PO HS #30 tab.rapdis 08/14/18 [Rx] 3 Allergy/AdvReac Type Severity Reaction Status Date / Time Penicillins Allergy Anaphylaxis Verified 08/08/18 23:26 Results Procedures and tests throughout hospitalization: Completed Imaging Orders Category Date Time Status XR ankle complete min 3V LT [XR] Stat Exams 08/09/18 11:45 Completed Provider Date of admission: 08/06/18 12:04 Primary care physician: PCP NONE Psychiatry Exam - Constitutional Vitals: Temp Pulse Resp BP Pulse Ox 97.8 F 93 20 142/103 98 08/13/18 20:18 08/13/18 20:18 08/13/18 20:18 08/13/18 20:18 08/13/18 08:27 General appearance: age & developmentally appropriate, well-groomed, well- nourished - Musculoskeletal Gait: normal Station: relaxed Strength & Tone: normal for patient - Psychiatric Patient Orientation: Yes Person, Yes Time, Yes Place Level of alertness: Alert Behavior: cooperative, talkative Psychomotor activity: Normal Eye Contact: Maintains Eye Contact Mood Description: Euthymic/stable Affect description: congruent with mood Speech Volume: Normal Speech pattern: clear, coherent Language & Vocabulary: consistent with education Thought Process: Intact Thought Content: Yes Intact Perceptual Disturbances: Yes Auditory hallucinations (baseline , not commanding) Attention Span Ability: Capable of Focused Attention Memory Description: Grossly Intact Patient Reliability: Reliable Historian Fund of knowledge: Yes average Intelligence Estimate: Average Judgment: Good Insight: Partial Hospital Course Hospital course: Mr. Gresham is a 33 year old male waho was admitted from medical floor , where admitted for AMS and consulted for agitation and psychosis , patient has h/o Schizophrenia , moved from [place] and had used Methamphetamine and his psychosis was aggravated. He was initially very agitated , verbal, impulsive and labile , he was given multiple prn medications for disruptive , threathening behaviour, he was started on geodon initially and did not work well was changed to olanzapine and dose increased to 15 mg and denied side effects and AIMS 0 He also was started on gabapentin as he was on it before and it helped him At present he is not si/hi , denies paranoia , hears voices but not commanding and states theyare calm and not as much and i have always have them and i always talk to my self , he has been calm and pleasant and had required no prn for 2 days. He stumped his foot and xray was taken , no fracture and no pain now. he is medically and psychiatrically stable on medications will discharge to his family and follow up appointment given . Time spent discussing smoking cessation with patient: 3 to 10 minutes Does patient wish to continue nicotine replacement upon disc: No (will try on his own.) - Time Spent with Patient Total time spent providing and/or coordinating discharge services: Less than 30 minutes Assessment and Plan - Patient/Caregiver Discharge Instructions Activity: resume usual activities as tolerated Diet: regular diet - Follow up Plan Follow up with: [facility]ie [facility] [Outside] - 08/24/18 10:00 am (The above appointment is with Rebecca Roberto for outpatient psychiatric assessment and medication management services. Please arrive 15 minutes early to complete paperwork. Please bring your insurance card, photo ID and medications in their original bottles. If you do not have insurance, bring proof of income to apply for the sliding fee scale. If you are unable to keep this appointment, 24 hour business notice of cancellation is expected. The above appointment(s) reflects first availability. You may contact the office regularly to check for cancellations that may allow you to be seen sooner.) [facility] - [facility]25/18 9:30 am (The above appointment is with Yris. Please complete and bring the [facility] intake packet you were provided at the hospital to this appointment. When you come to your first appointment, you will be meeting with business office staff, meeting with a counselor, and developing a treatment plan. You will receive follow- up appointments for on-going services, which could include community support, mental health and substance abuse counseling, groups/partial hospitalization programming and medication assisted treatment. You will also need to bring the following to your first appointment as well: 1) proof of household income (two consecutive pay stubs, social security award letter, bank statement, statement letter from [facility], child support statement, IRS 1040 or W2 form, or a statement from the person who financially supports you stating they help provide for your basic needs), 2) proof of residency (drivers license, a piece of mail showing your address, a statement from person you live with verifying you live at their address), 3) photo ID, 4) your insurance card (if you have commercial insurance you must call to obtain a prior authorization number before you arrive to your first appointment) and 5) if you do not have insurance but have applied for Medicaid, please bring verification you have applied. The above appointment(s) reflects first availability. You may contact the office regularly to check for cancellations that may allow you to be seen sooner.) Functional capacity at discharge: independent ambulation Overall status at discharge: patient is back to baseline Disposition: Home, Self-Care Quality - Multiple Antipsychotics Patient discharged on 2 or more antipsychotic medications: No Procedures - Procedures Procedures: Medication Management, Crisis Stabilization, Supportive Therapy, Group Therapy, Psychoeducational Therapy
[2018-08-14 10:44] VITALS: BP 163/105
[2018-08-14] MEDS: hydrOXYzine pamoate 25 MG CAPSULE PO PRN (12:29)
== END 2018-08-14 16:20 | disposition home or self-care (01) | DRG 750 ==
LOC: SUATTDRO 12:04 → 1ANU 12:04
PROVIDERS: ADMIT Psychiatry & Neurology Psychiatry; ATTEND Psychiatry & Neurology Psychiatry